=== PATIENT | female | born 1965 | race Caucasian/White ===

== ENCOUNTER 2018-04-30 17:36 | Emergency (ER) | payer BC ==
[~2018-04-30] VITALS: Ht 167.6 cm; Wt 117.9 kg
--- NOTE | 2018-04-30 18:07 | NUR ---
Patient wants to wait in the waiting room for now.
[2018-04-30] MEDS ORDERED: SULFAMETH/TRIMETH 800/160 MG TABLET ONE (19:28)
[2018-04-30] MEDS ORDERED: diphenhydrAMINE 50 MG/1 ML VIAL IM ONE (19:30)
[2018-04-30] MEDS ORDERED: SULFAMETH/TRIMETH 800/160 MG TABLET PO ONE (19:30)
[2018-04-30] MEDS ORDERED: diphenhydrAMINE 50 MG/1 ML VIAL ONE (19:39)
--- NOTE | 2018-04-30 19:59 | NUR ---
Ultrasound at bedside.
--- NOTE | 2018-04-30 21:01 | NUR ---
Patient discharged to home in stable conditon. Written and verbal after care instructions given. Patient verbalizes understanding of instructions. Pt ambulated out of ER in steady gait. All belongings with pt. VSS. NAd noted.
[2018-04-30 21:02] VITALS: BP 141/89
== END 2018-04-30 21:03 | disposition home or self-care (01) ==
LOC: ER 17:36
DX: S30.861A Insect bite (nonvenomous) of abdominal wall, initial encounter (principal); L08.9 Local infection of the skin and subcutaneous tissue, unspecified; L03.115 Cellulitis of right lower limb; W57.XXXA Bitten or stung by nonvenomous insect and other nonvenomous arthropods, initial encounter; Y93.89 Activity, other specified; Y92.89 Other specified places as the place of occurrence of the external cause; Y99.8 Other external cause status
CPT/HCPCS: 93971; 96372; 99284; J1200; A4663